=== PATIENT | male | born 1975 | race Caucasian/White ===

== ENCOUNTER 2019-03-14 20:40 | Emergency (ER) | payer OTHER ==
[~2019-03-14] VITALS: Ht 167.6 cm; Wt 72.6 kg
[2019-03-14 20:50] VITALS: BP_SYST 118
--- NOTE | 2019-03-14 22:45 | NUR ---
PT PLACED IN [facility]. DR. PULIDO EXAMINING PT
[2019-03-14] MEDS ORDERED: KETOROLAC TROMETHAMINE 60 MG/2 ML VIAL IM ONE (23:15)
[2019-03-15 02:46] VITALS: BP_SYST 129
--- NOTE | 2019-03-15 02:46 | NUR ---
Patient given written and verbal discharge instructions and verbalizes understanding. ER MD discussed with patient the results and treatment provided. Patient in stable condition. ID arm band removed. Rx of clindamycin, Motrin given. Patient educated on pain management and to follow up with PMD. Pain Scale 0/10 Opportunity for questions provided and answered. Medication side effect fact sheet provided. Patient given written and verbal discharge instructions and verbalizes understanding. Given copies of tests performed during visit. Patient is awake, alert and oriented. Ambulatory with steady gait. Refuses offer of snf placement. Given list of available shelters in surrounding areas.
== END 2019-03-15 02:46 | disposition home or self-care (01) ==
LOC: SED 20:40
DX: L03.116 Cellulitis of left lower limb (principal)
CPT/HCPCS: 73590; 73610; 73630; 96372; 99283; J1885

== ENCOUNTER 2019-07-30 19:33 | Emergency (ER) | payer OTHER ==
[~2019-07-30] VITALS: Ht 172.7 cm; Wt 77.1 kg
[2019-07-30 19:40] VITALS: BP_SYST 121
[2019-07-30] MEDS ORDERED: NACL 0.9% 1,000 ML IV ONE (20:21)
[2019-07-30] MEDS ORDERED: ASPIRIN 325 MG TABLET (ECOTRIN) PO ONE (20:30)
[2019-07-30] MEDS ORDERED: HEPARIN SODIUM,PORCINE 5000 UNITS/ML VIAL IVP ONE (20:30)
[2019-07-30] MEDS ORDERED: LORazepam 2 MG/ML VIAL IVP ONE (20:30)
[2019-07-30] MEDS ORDERED: NITROGLYCERIN LINGUAL 400 mCg/SPRAY TL ONE (20:30)
[2019-07-30] MEDS ORDERED: ASPIRIN 325 MG TABLET ONE (20:37)
[2019-07-30] MEDS ORDERED: HEPARIN SODIUM,PORCINE 5000 UNITS/ML VIAL ONE (20:38)
[2019-07-30 20:40] VITALS: BP_SYST 121
[2019-07-30] MEDS ORDERED: NITROGLYCERIN LINGUAL 400 mCg/SPRAY ONE (20:40)
[2019-07-30] MEDS ORDERED: LORazepam 2 MG/ML VIAL ONE (20:42)
== END 2019-07-30 20:40 | disposition short-term general hospital (02) ==
LOC: SED 19:33
DX: I21.9 Acute myocardial infarction, unspecified (principal); F10.10 Alcohol abuse, uncomplicated; Y90.9 Presence of alcohol in blood, level not specified
CPT/HCPCS: 36415; 71045; 86710; 93005; 96374; 96375; 99285; J1644; J2060; J7030